=== PATIENT | male | born 1985 | race Caucasian/White ===

== ENCOUNTER → 2018-03-31 | Emergency (ER) | payer OTHER ==
[~2018-03-31] VITALS: Ht 182.9 cm; Wt 117.9 kg
== END | disposition home or self-care (01) ==
LOC: ER 22:01
DX: S01.82XA Laceration with foreign body of other part of head, initial encounter (principal); Y08.89XA Assault by other specified means, initial encounter; Y93.89 Activity, other specified; Y92.89 Other specified places as the place of occurrence of the external cause; Y99.8 Other external cause status

== ENCOUNTER 2018-04-10 14:01 | Emergency (ER) | payer OTHER ==
[~2018-04-10] VITALS: Ht 182.9 cm; Wt 117.9 kg
== END 2018-04-10 18:51 | disposition home or self-care (01) ==
LOC: ER 14:01
DX: Z48.02 Encounter for removal of sutures (principal)

== ENCOUNTER → 2023-01-05 06:13 | Outpatient (CLI) | payer OTHER | END | disposition home or self-care (01) | LOC: LAB 06:13 | PROVIDERS: ATTEND Obstetrics & Gynecology | DX: Z20.818 Contact with and (suspected) exposure to other bacterial communicable diseases (principal); Z20.828 Contact with and (suspected) exposure to other viral communicable diseases ==